=== PATIENT | male | born 2000 | race Hispanic/Latino ===

== ENCOUNTER 2023-05-05 18:25 | Emergency (ER) | payer SELFPAY ==
[~2023-05-05] VITALS: Ht 175.3 cm; Wt 81.6 kg
[2023-05-05 18:42] VITALS: O2SAT 100
[2023-05-05] MEDS ORDERED: KETOROLAC TROME10 MG PO (19:46)
[2023-05-05] MEDS ORDERED: PREDNISONE20 MG PO (19:46)
== END 2023-05-05 19:51 | disposition home or self-care (01) ==
LOC: ER 18:41
DX: M54.41 Lumbago with sciatica, right side (principal); R05.9 Cough, unspecified
CPT/HCPCS: 72131; 99283

== ENCOUNTER 2024-07-07 11:35 | Emergency (ER) | payer OTHER ==
[~2024-07-07] VITALS: Ht 172.7 cm; Wt 80.9 kg
[~2024-07-07 11:35] MED LIST: KETOROLAC TROME10 MG PO; PREDNISONE20 MG PO; ULTRAM 50MG50 MG PO
[2024-07-07 11:38] VITALS: PULSE 62; RESP 18; TEMP 98.1; O2SAT 97
[2024-07-07] MEDS ORDERED: CEPHALEXIN MONOHYDRATE 250 MG CAP ONE (11:52)
[2024-07-07] MEDS: TETANUS/DIPHTHERIA TOX ADULT 0.5 ML SYR IM STA (12:10)
[2024-07-07] MEDS: ACETAMINOPHEN 325 MG TAB PO ONE (12:12)
[2024-07-07] MEDS: BACITRACIN ZINC 0.9GM TP ONE (12:12)
[2024-07-07] MEDS: LIDOCAINE HCL 2% LOCAL 20 ML VIAL INJ STA (12:12)
[2024-07-07] MEDS: CEPHALEXIN MONOHYDRATE 250 MG CAP PO STA (12:32)
[2024-07-07 12:41] VITALS: BP 114/57; PULSE 69; RESP 16
== END 2024-07-07 12:40 | disposition home or self-care (01) ==
LOC: FSED 11:44
DX: S61.511A Laceration without foreign body of right wrist, initial encounter (principal); W25.XXXA Contact with sharp glass, initial encounter; Y92.89 Other specified places as the place of occurrence of the external cause; J44.9 Chronic obstructive pulmonary disease, unspecified
CPT/HCPCS: 90471; 90714; 99284

== ENCOUNTER 2024-07-19 11:20 | Emergency (ER) | payer OTHER ==
[~2024-07-19] VITALS: Ht 172.7 cm; Wt 83.5 kg
[2024-07-19 11:30] VITALS: PULSE 80; RESP 16; TEMP 98.2; O2SAT 97
[2024-07-19] MEDS ORDERED: TRIAMCINOLONE A15 G1 TOP (11:42)
[2024-07-19] MEDS ORDERED: BACTRIM DS TAB1 EACH PO (11:43)
== END 2024-07-19 11:47 | disposition home or self-care (01) ==
LOC: FSED 11:25
DX: Z48.02 Encounter for removal of sutures (principal)
CPT/HCPCS: 99283; S0630